=== PATIENT | male | born 1985 | race Caucasian/White ===

== ENCOUNTER 2022-06-02 04:32 | Outpatient (CLI) | payer BC, SELFPAY ==
[2022-06-02 07:43] LABS: HCT 44.5 % (40.0-50.0); MCH 31.7 pg (27.0-33.0); MCHC 33.7 % (32.0-36.0); MCV 94 fL (80-95); MPV 11.5 fL (8.0-11.0); Platelet Count 193 10^3/uL (130-400); RBC 4.73 10^6/uL (4.36-5.78); RDW 12.8 % (11.8-14.1); RDW-SD 44.1 fL; WBC 7.14 10^3/uL (4.4-10.8)
[2022-06-02 08:52] LABS: ALT 61 U/L (16-63); AST 26 U/L (15-37); Albumin 4.1 g/dL (3.4-5.0); Alkaline Phosphatase 65 U/L (46-116); Anion Gap 9.5 mmol/L (3-11); BUN 21 mg/dL (7-18); Bilirubin, Total 0.8 mg/dL (0.2-1.0); CO2 29.5 mmol/L (21.0-32.0); CREATININE 1.1 mg/dL (0.70-1.30); Calculated LDL 52 mg/dL (<100); Chloride 102 mmol/L (98-107); Cholesterol 103 mg/dL (<200); Glucose 104 mg/dL (74-106); HDL Cholesterol 37 mg/dL (40-60); Potassium 3.7 mmol/L (3.5-5.1); Sodium 141 mmol/L (136-145); TSH 0.76 uIU/mL (0.36-3.74); Total Protein 7.8 g/dL (6.4-8.2); Triglyceride 72 mg/dL (<150)
[2022-06-02 09:03] LABS: Uric Acid 4.1 mg/dL (3.5-7.2)
[2022-06-02 09:44] LABS: Hemoglobin A1C 5.6 % (<5.7)
[2022-06-05 09:47] LABS: Insulin 17.1 uIU/mL (<29.0)
[2022-06-05 09:52] LABS: Methylmalonic Acid 0.14 nmol/mL (<=0.40)
== END 2022-06-02 04:33 | disposition home or self-care (01) ==
LOC: LBO 04:33
PROVIDERS: Visit Provider Family Medicine
DX: Z00.01 Encounter for general adult medical examination with abnormal findings (principal); M10.079 Idiopathic gout, unspecified ankle and foot; E66.8 Other obesity; Z68.38 Body mass index [BMI] 38.0-38.9, adult; E53.8 Deficiency of other specified B group vitamins; E78.2 Mixed hyperlipidemia; Z13.1 Encounter for screening for diabetes mellitus
CPT/HCPCS: 36415; 80053; 80061; 80186; 83090; 85027; 83036; 83525; 84443; 84550

== ENCOUNTER 2022-08-19 03:42 | Outpatient (CLI) | payer BC, SELFPAY ==
[2022-08-19 07:54] LABS: Calculated LDL 78 mg/dL (<100); Cholesterol 128 mg/dL (<200); HDL Cholesterol 38 mg/dL (40-60); Triglyceride 62 mg/dL (<150)
[2022-08-19 08:06] LABS: Uric Acid 2.9 mg/dL (3.5-7.2)
== END 2022-08-19 03:43 | disposition home or self-care (01) ==
DX: E78.2 Mixed hyperlipidemia (principal); E53.8 Deficiency of other specified B group vitamins; M10.071 Idiopathic gout, right ankle and foot
CPT/HCPCS: 36415; 80061; 84550

== ENCOUNTER 2023-06-22 04:25 | Outpatient (CLI) | payer BC, SELFPAY ==
[2023-06-22 12:28] LABS: HCT 43.7 % (40.0-50.0); MCH 32.7 pg (27.0-33.0); MCHC 34.3 % (32.0-36.0); MCV 95 fL (80-95); MPV 10.6 fL (8.0-11.0); Platelet Count 218 10^3/uL (130-400); RBC 4.59 10^6/uL (4.36-5.78); RDW 13.2 % (11.8-14.1); RDW-SD 46.2 fL; WBC 8.23 10^3/uL (4.4-10.8)
[2023-06-22 13:02] LABS: Hemoglobin A1C 5.4 % (<5.7)
[2023-06-22 13:34] LABS: ALT 55 U/L (16-63); AST 20 U/L (15-37); Albumin 4.2 g/dL (3.4-5.0); Alkaline Phosphatase 78 U/L (46-116); Anion Gap 9.8 mmol/L (3-11); BUN 12 mg/dL (7-18); Bilirubin, Total 0.5 mg/dL (0.2-1.0); CO2 27.2 mmol/L (21.0-32.0); CREATININE 1.2 mg/dL (0.70-1.30); Calcium 9.9 mg/dL (8.5-10.1); Calculated LDL 59 mg/dL (<100); Chloride 98 mmol/L (98-107); Cholesterol 114 mg/dL (<200); Estimated GFR 79.88 (mL/min/1.73m2); Glucose 85 mg/dL (74-106); HDL Cholesterol 44 mg/dL (40-60); Potassium 3.9 mmol/L (3.5-5.1); Sodium 135 mmol/L (136-145); TSH 0.92 uIU/mL (0.36-3.74); Triglyceride 58 mg/dL (<150)
[2023-06-24 08:33] LABS: Homocysteine 9.7 umol/L (5.0-13.9)
[2023-06-25 08:23] LABS: Insulin 10.1 uIU/mL (<29.0)
[2023-06-25 09:32] LABS: Methylmalonic Acid 0.17 nmol/mL (<=0.40)
== END 2023-06-22 04:26 | disposition home or self-care (01) ==
PROVIDERS: Visit Provider Family Medicine
DX: Z00.01 Encounter for general adult medical examination with abnormal findings (principal); E78.5 Hyperlipidemia, unspecified; I10 Essential (primary) hypertension; G47.33 Obstructive sleep apnea (adult) (pediatric); E66.8 Other obesity; R79.89 Other specified abnormal findings of blood chemistry
CPT/HCPCS: 36415; 80053; 80061; 80186; 83090; 85027; 83036; 83525; 84443

== ENCOUNTER 2023-11-30 18:30 | Outpatient (REF) | payer BC, SELFPAY ==
[2023-11-30 16:26] LABS: Bilirubin Negative (Negative); Blood Negative (Negative); Clarity Clear (Clear); Glucose Negative (Negative); Ketones Negative (Negative); Leukocyte Esterase Trace (Negative); Nitrite Negative (Negative); Urobilinogen 0.2 mg/dL (Up to 0.2)
== END 2023-11-30 18:31 | disposition home or self-care (01) ==
LOC: LBN 18:30
PROVIDERS: Visit Provider Family Medicine
DX: R30.0 Dysuria (principal); R82.998 Other abnormal findings in urine
CPT/HCPCS: 81003; 87086